=== PATIENT | female | born 1985 | race Caucasian/White ===

== ENCOUNTER 2022-05-11 11:58 | Inpatient (IN) ==
[2022-05-11] MEDS ORDERED: Lactated Ringers 1000 ml BAG 1,000 ML IV ONE ×2 (12:42→14:44)
[2022-05-11] MEDS ORDERED: Buffered Lidocaine 1% SYRIN 1 ml INTRADERM ONE (12:42)
[2022-05-11] MEDS ORDERED: OBEPIDURAL (200 ML) 200 ML EPIDURAL ONE (13:51)
[2022-05-11 13:52] LABS: ABS Basophils 0.1 10^3/ul (0-0.2); ABS Eosinophils 0.1 10^3/ul (0-0.6); ABS Lymphocytes 1.9 10^3/ul (1.0-4.8); ABS Monocytes 0.8 10^3/ul (0-0.8); ABS Neutrophils 13.8 10^3/ul (1.5-7.7); Eosinophil % 0.4 %; Hematocrit 39 % (35-47); Hemoglobin 12.6 g/dL (12.0-16.0); Lymphocyte % 11.6 %; Mean Corpuscular HGB Conc 33 g/dL (31-36); Mean Corpuscular Hemoglobin 29 pg (27-31); Mean Corpuscular Volume 88 fL (80-97); Mean Platelet Volume 10.7 fL (7.4-10.4); Platelet Count 202 10^3/uL (150-450); Red Cell Distribution Width 16 % (10-15); White Blood Count 16.6 10^3/uL (3.5-10.8)
[2022-05-11] MEDS ORDERED: Lidocaine 1.5% EPI 1:200,000 30 ML SDV ONE (13:58)
[2022-05-11 14:09] LABS: Urine Benzodiazepine Screen None Detected (None Detect); Urine Cannabinoids Screen None Detected (None Detect); Urine Opiates Screen None Detected (None Detect)
[2022-05-11] MEDS ORDERED: Sodium Citrate/Citric Acid LIQ 15 ML UDC PO PRN (14:44)
[2022-05-11] MEDS ORDERED: Phenylephrine 40 mcg/mL 10mL (400mcg) SYRINGE IV PUSH PRN ×2 (14:44)
[2022-05-11] MEDS: Lactated Ringers 1000 ml BAG 1,000 ML IV SCH ×2 (14:45→16:44)
[2022-05-11] MEDS ORDERED: OBEPIDURAL (200 ML) 200 ML EPIDURAL SCH (15:00)
[2022-05-11] MEDS ORDERED: Lactated Ringers 1000 ml BAG 1,000 ML IV SCH (15:00)
[2022-05-11 15:49] LABS: Urine Appearance Cloudy; Urine Bilirubin Negative (Negative); Urine Blood 1+ (Negative); Urine Color Yellow; Urine Glucose Negative (Negative); Urine Ketones 1+ (Negative); Urine Nitrite Negative (Negative); Urine Protein 2+(100 mg/dL) (Negative); Urine Urobilinogen Negative (Negative)
[2022-05-11 15:58] LABS: Urine Bacteria Absent (Absent); Urine Red Blood Cell 3+(>10/hpf) (Absent); Urine Squamous Epithelial Cell Present (Absent); Urine White Blood Cell Trace(0-5/hpf) (Absent)
[2022-05-12] MEDS ORDERED: Oxytocin in LR 20,000 MILLI.UNIT/1,000 ML BAG IV SCH ×2 (04:45→10:30)
[2022-05-12] MEDS: Lactated Ringers 1000 ml BAG 1,000 ML IV SCH (05:07)
[2022-05-12] MEDS ORDERED: ceFOXitin 2 GM IVPREMIX 2 GM/50 ML BAG ONE (06:14)
[2022-05-12] MEDS ORDERED: ceFOXitin 2 GM IVPREMIX 2 GM/50 ML BAG IVPB ONE (06:33)
[2022-05-12] MEDS ORDERED: Lidocaine 2% w/ EPI 1:200,000 MPF 20 ML SDV VIAL ONE ×2 (06:36→09:04)
[2022-05-12] MEDS ORDERED: Lidocaine 2% PF 10 ML AMP (OR) ONE (06:36)
[2022-05-12] MEDS ORDERED: Acetaminophen IV 1 GM/100ML 1,000 MG/100 ML BAG IV PRN (08:30)
[2022-05-12] MEDS ORDERED: Ondansetron 4 mg VIAL 2 MG/ML 2 ml VIAL IV PRN (08:30)
[2022-05-12] MEDS ORDERED: Metoclopramide 5 MG/ML VIAL (10 mg) IV PRN (08:30)
[2022-05-12] MEDS ORDERED: Naloxone 0.4 mg VIAL 0.4 mg/ml 1 ml VIAL IV PUSH PRN (08:30)
[2022-05-12] MEDS ORDERED: fentaNYL 100 mcg/2 ml 50 MCG/ML VIAL ONE (09:04)
[2022-05-12] MEDS ORDERED: Morphine PF AMP (0.5MG/ML) 5 MG/10 ML AMP ONE (09:25)
[2022-05-12] MEDS ORDERED: Dexamethasone IV 4 MG/ML VIAL 1 ml VIAL ONE (09:39)
[2022-05-12] MEDS ORDERED: Oxytocin 10 UNITS/ML 1 ML VIAL ONE (09:39)
[2022-05-12] MEDS ORDERED: Witch Hazel PAD JAR TOPICAL PRN (10:30)
[2022-05-12] MEDS ORDERED: Glycerin ADULT 2.4 gm SUPP PR PRN (10:30)
[2022-05-12] MEDS ORDERED: Dibucaine 1% OINT 28.35 GM TUBE PR PRN (10:30)
[2022-05-12] MEDS ORDERED: Lactated Ringers 1000 ml BAG 1,000 ML IV SCH (11:00)
[2022-05-13 07:54] LABS: Hematocrit 29 % (35-47); Hemoglobin 9.6 g/dL (12.0-16.0); Mean Corpuscular HGB Conc 33 g/dL (31-36); Mean Corpuscular Hemoglobin 29 pg (27-31); Mean Corpuscular Volume 88 fL (80-97); Mean Platelet Volume 11.3 fL (7.4-10.4); Platelet Count 187 10^3/uL (150-450); Red Blood Count 3.34 10^6 /uL (3.70-4.87); Red Cell Distribution Width 16 % (10-15); White Blood Count 21.4 10^3/uL (3.5-10.8)
[2022-05-13 08:34] LABS: ABS Eosinophils 0.1 10^3/ul (0-0.6); ABS Lymphocytes 1.8 10^3/ul (1.0-4.8); ABS Monocytes 1.8 10^3/ul (0-0.8); ABS Neutrophils 17.7 10^3/ul (1.5-7.7); Eosinophil % 0.4 %; Lymphocyte % 8.3 %
[2022-05-14 08:58] VITALS: BP 111/66
== END 2022-05-14 17:50 | disposition home or self-care (01) | DRG 540 ==
LOC: MCHOBOUT 11:58 → MCHOB 12:46
PROVIDERS: ADMIT Midwife; ATTEND Midwife

== ENCOUNTER 2023-04-19 09:12 | Inpatient (IN) ==
[~2023-04-19 09:12] MED LIST: Acetaminophen IV 1 GM/100ML 1,000 MG/100 ML BAG IV PRN; Buffered Lidocaine 1% SYRIN 1 ml INTRADERM ONE; Lactated Ringers 1000 ml BAG 1,000 ML IV SCH; Metoclopramide 5 MG/ML VIAL (10 mg) IV PRN; Naloxone 0.4 mg VIAL 0.4 mg/ml 1 ml VIAL IV PUSH PRN; Ondansetron 4 mg VIAL 2 MG/ML 2 ml VIAL IV PRN; Sodium Citrate/Citric Acid LIQ 15 ML UDC PO ONE
[2023-04-19] MEDS ORDERED: Lactated Ringers 1000 ml BAG 1,000 ML IV ONE (09:47)
[2023-04-19] MEDS ORDERED: ceFOXitin 2 GM IVPREMIX 2 GM/50 ML BAG IVPB ONE (09:47)
[2023-04-19] MEDS ORDERED: Sodium Citrate/Citric Acid LIQ 15 ML UDC PO ONE (09:47)
[2023-04-19] MEDS ORDERED: Buffered Lidocaine 1% SYRIN 1 ml INTRADERM ONE (09:47)
[2023-04-19] MEDS ORDERED: Lactated Ringers 1000 ml BAG 1,000 ML IV SCH ×2 (10:00→13:00)
[2023-04-19 10:21] LABS: ABS Basophils 0.1 10^3/uL (0.0-0.1); ABS Eosinophils 0.1 10^3/uL (0.0-0.5); ABS Lymphocytes 2.1 10^3/uL (1.0-4.8); ABS Monocytes 0.8 10^3/uL (0.0-0.9); ABS Nucleated RBC 0.01 10^3/ul; Eosinophil % 1.2 %; Hematocrit 34.1 % (35-45); Hemoglobin 11.4 g/dL (11.5-14.3); Lymphocyte % 18.5 %; Mean Corpuscular Hemoglobin 27.8 pg (27-33); Mean Corpuscular Hgb Conc 33.3 g/dL (31-36); Mean Corpuscular Volume 83.3 fL (80-97); Mean Platelet Volume 10.2 fL (7.5-11.2); Nucleated Red Blood Cells % 0.1 %/100WBC (0.0-0.8); Platelet Count 191 10^3/uL (150-450); Red Blood Count 4.09 10^6/uL (3.63-4.92); Red Cell Distribution Width 14.6 % (12-17); White Blood Count 11.2 10^3/uL (3.8-11.8)
[2023-04-19] MEDS ORDERED: fentaNYL 100 mcg/2 ml 50 MCG/ML VIAL ONE (10:31)
[2023-04-19] MEDS ORDERED: Morphine PF AMP (0.5MG/ML) 5 MG/10 ML AMP ONE (10:31)
[2023-04-19] MEDS ORDERED: Ondansetron 4 mg VIAL 2 MG/ML 2 ml VIAL ONE (11:36)
[2023-04-19] MEDS ORDERED: Dexamethasone IV 4 MG/ML VIAL 1 ml VIAL ONE (11:36)
[2023-04-19] MEDS ORDERED: Oxytocin 10 UNITS/ML 1 ML VIAL ONE ×2 (11:51→12:11)
[2023-04-19] MEDS ORDERED: Ondansetron 4 mg VIAL 2 MG/ML 2 ml VIAL IV PRN (12:10)
[2023-04-19] MEDS ORDERED: Metoclopramide 5 MG/ML VIAL (10 mg) IV PRN (12:10)
[2023-04-19] MEDS ORDERED: Acetaminophen IV 1 GM/100ML 1,000 MG/100 ML BAG IV PRN (12:10)
[2023-04-19] MEDS ORDERED: Naloxone 0.4 mg VIAL 0.4 mg/ml 1 ml VIAL IV PUSH PRN (12:10)
[2023-04-19 12:12] LABS: Urine Benzodiazepine Screen None Detected (None Detect); Urine Cannabinoids Screen None Detected (None Detect); Urine Opiates Screen None Detected (None Detect)
[2023-04-19] MEDS ORDERED: Glycerin ADULT 2.4 gm SUPP PR PRN (12:36)
[2023-04-19] MEDS ORDERED: Dibucaine 1% OINT 28.35 GM TUBE PR PRN (12:36)
[2023-04-19] MEDS ORDERED: Witch Hazel PAD JAR TOPICAL PRN (12:36)
[2023-04-19] MEDS ORDERED: Oxytocin in LR 20,000 MILLI.UNIT/1,000 ML BAG IV SCH (12:40)
[2023-04-19 12:49] LABS: Urine Appearance Clear; Urine Bilirubin Negative (Negative); Urine Blood Negative (Negative); Urine Color Straw; Urine Glucose Negative (Negative); Urine Ketones Negative (Negative); Urine Nitrite Negative (Negative); Urine Protein Negative (Negative); Urine Specific Gravity 1.005 (1.002-1.030); Urine Urobilinogen Negative (Negative)
[2023-04-20 07:32] LABS: ABS Basophils 0.1 10^3/uL (0.0-0.1); ABS Eosinophils 0.1 10^3/uL (0.0-0.5); ABS Lymphocytes 2.6 10^3/uL (1.0-4.8); ABS Monocytes 1.3 10^3/uL (0.0-0.9); ABS Neutrophils 11.5 10^3/uL (1.5-7.6); ABS Nucleated RBC 0.02 10^3/ul; Eosinophil % 0.5 %; Hematocrit 29.9 % (35-45); Lymphocyte % 16.7 %; Mean Corpuscular Hemoglobin 27.9 pg (27-33); Mean Corpuscular Hgb Conc 33.3 g/dL (31-36); Mean Corpuscular Volume 83.7 fL (80-97); Mean Platelet Volume 10.3 fL (7.5-11.2); Nucleated Red Blood Cells % 0.1 %/100WBC (0.0-0.8); Platelet Count 162 10^3/uL (150-450); Red Blood Count 3.57 10^6/uL (3.63-4.92); Red Cell Distribution Width 14.5 % (12-17); White Blood Count 15.6 10^3/uL (3.8-11.8)
[2023-04-21 07:52] VITALS: BP 114/67
== END 2023-04-21 14:50 | disposition home or self-care (01) | DRG 540 ==
LOC: MCHOB 09:12
PROVIDERS: ADMIT Obstetrics & Gynecology; ATTEND Obstetrics & Gynecology